=== PATIENT | male | born 1995 | race Caucasian/White ===

== ENCOUNTER 2025-08-18 00:50 | Emergency (ER) | payer BC ==
[2025-08-18] MEDS: Buprenorphine/Naloxone 8-2 MG Tab.SL SL ONE (02:19)
[2025-08-18] MEDS ORDERED: Sodium Chloride 0.9% 10 ML Syringe FLUSH PRN (02:46)
[2025-08-18] MEDS ORDERED: Sodium Chloride 0.9% 2.5 ML Syringe FLUSH PRN (02:46)
[2025-08-18] MEDS: LORazepam 2 MG/ML SDV IVPUSH ONE ×2 (02:50→03:17)
== END 2025-08-18 04:35 | disposition home or self-care (01) ==
LOC: MW.ED 00:50
DX: F11.23 Opioid dependence with withdrawal (principal); Z88.8 Allergy status to other drugs, medicaments and biological substances; Z91.09 Other allergy status, other than to drugs and biological substances; Z79.899 Other long term (current) drug therapy
CPT/HCPCS: 96374; 99283; J0574; J2060